=== PATIENT | male | born 1935 | race Caucasian/White ===

== ENCOUNTER 2024-06-04 07:00 | Day surgery (SDC) | payer MEDICARE, OTHER ==
[~2024-06-04 07:00] MED LIST: Sodium Chloride 0.9% 10 ML Syringe FLUSH PRN; Sodium Chloride 0.9% 10 ML Syringe FLUSH SCH
[2024-06-04] MEDS: Lactated Ringers 1,000 ML IV SCH (07:30)
[2024-06-04] MEDS ORDERED: Propofol 200 MG/20 ML SDV ONE ×3 (07:50)
[2024-06-04] MEDS ORDERED: ceFAZolin 2 GM Vial ONE (07:51)
[2024-06-04 07:53] LABS: PROTHROMBIN TIME 10.6 SECONDS (9.7-12.0)
[2024-06-04] MEDS ORDERED: fentaNYL 100 MCG/2 ML SDV ONE (07:53)
[2024-06-04 07:55] LABS: PTT,PARTIAL THROMBOPLSTIN TIME 23.2 SECONDS (21.7-31.4)
[2024-06-04] MEDS ORDERED: ePHEDrine 50 MG/ML SDV ONE (08:30)
[2024-06-04] MEDS: Morphine 8 MG, EPINEPHrine 0.3 MG, Cefuroxime 750 MG, Ketorolac 30 MG, Sodium Chloride ... PRN (09:30)
[2024-06-04] MEDS: Vancomycin 1 GM SDV ONE (09:30)
[2024-06-04] MEDS: Tranexamic Acid 1,000 MG/10 ML Vial ONE (09:30)
[2024-06-04] MEDS ORDERED: Dexamethasone 4 MG/ML 5 ML MDV ONE (09:38)
[2024-06-04] MEDS ORDERED: Ondansetron 4 MG/2 ML SDV ONE (09:38)
[2024-06-04] MEDS ORDERED: fentaNYL 100 MCG/2 ML SDV IVPUSH PRN (09:57)
[2024-06-04] MEDS ORDERED: HYDROmorphone 0.5 MG/0.5 ML Syringe IVPUSH PRN (09:57)
[2024-06-04] MEDS ORDERED: Ondansetron 4 MG/2 ML SDV IVPUSH PRN (09:57)
[2024-06-04] MEDS: Acetaminophen/HYDROcodone 325-5 MG Tab PO PRN (10:34)
[2024-06-04 15:13] VITALS: BP 122/57; PULSE 65
== END 2024-06-04 15:45 | disposition home or self-care (01) ==
LOC: JD.SDS 07:00
PROVIDERS: ATTEND Orthopaedic Surgery
DX: M16.11 Unilateral primary osteoarthritis, right hip (principal); I10 Essential (primary) hypertension; I48.0 Paroxysmal atrial fibrillation; I25.10 Atherosclerotic heart disease of native coronary artery without angina pectoris; Z95.1 Presence of aortocoronary bypass graft; Z87.891 Personal history of nicotine dependence; Z79.01 Long term (current) use of anticoagulants; Z79.899 Other long term (current) drug therapy
CPT/HCPCS: 01214; 36415; 73501-26-RT; 73501-RT; 85610; 85730; 86850; 86900; 86901; 97110-GP; 97116-GP; 97161-GP; 99100; A9270-GY; C1713; C1776; J0171; J0690; J0697; J1100; J1885; J2270; J2405; J2704; J3010; J3490; J7120

== ENCOUNTER 2024-06-08 05:42 | Emergency (ER) | payer MEDICARE, OTHER ==
[2024-06-08 05:58] VITALS: BP 164/70; PULSE 83
== END 2024-06-08 07:41 | disposition home or self-care (01) ==
LOC: JD.ED 05:42
DX: M25.551 Pain in right hip (principal); I10 Essential (primary) hypertension; Z79.890 Hormone replacement therapy; Z79.899 Other long term (current) drug therapy; Z90.49 Acquired absence of other specified parts of digestive tract; Z86.16 Personal history of COVID-19
CPT/HCPCS: 73502-26-RT; 73502-RT; 99283